=== PATIENT | male | born 1995 | race Caucasian/White ===

== ENCOUNTER 2021-08-01 06:50 | Emergency (ER) | payer MEDICAID, MEDICARE ==
[~2021-08-01] VITALS: Ht 182.9 cm; Wt 109.5 kg
[2021-08-01 06:55] VITALS: BP 105/75
--- NOTE | 2021-08-01 07:01 | NUR ---
PT TAKEN TO BED 04.
--- NOTE | 2021-08-01 07:14 | NUR ---
DR. CAMPO AT PT BEDSIDE FOR FURTHER EVALUATION.
--- NOTE | 2021-08-01 07:18 | NUR ---
RECEIVED REPORT FROM STEFFI EL. TRANSFER OF CARE AT THIS TIME.
[2021-08-01] MEDS ORDERED: KETOROLAC 30 MG/ML VIAL IM ONE (07:20)
--- NOTE | 2021-08-01 07:30 | NUR ---
COLLECTED STEP THROAT RAPID AND CULTURE WALKED TO LAB.
--- NOTE | 2021-08-01 07:32 | NUR ---
25 Y/O MALE C/O SORE THROAT 12/01 DESCRIBES SORE X1 WEEK. PT STATES IT IS DIFFICULT TO SWALLOW. DENIES FEVER, COUGH AND CONGESTION. DENIES PMH NKA
--- NOTE | 2021-08-01 07:33 | NUR ---
PT TAKEN TO CT VIA W/C AT THIS TIME.
--- NOTE | 2021-08-01 07:39 | NUR ---
PT TAKEN TO ER BED 4 VIA W/C FROM CT.
--- NOTE | 2021-08-01 08:48 | NUR ---
DR. CAMPO AT PT BEDSIDE FOR FURTHER RE-EVALUATION.
[2021-08-01] MEDS ORDERED: PENI500T20 PO (08:51)
[2021-08-01] MEDS ORDERED: IBUP-2213 PO (08:51)
[2021-08-01 09:18] VITALS: BP 105/75
--- NOTE | 2021-08-01 09:19 | NUR ---
Patient discharged with v/s stable. Written and verbal after care instructions given FOR DIET AND DENTAL DISEASE, LYMPHDENOPATHY and explained. Patient alert, oriented and verbalized understanding of instructions. Ambulatory with steady gait. All questions addressed prior to discharge. ID band removed. Patient advised to follow up with PMD. Rx of PENICILLIN AND IBUPROFEN given. Patient educated on indication of medication including possible reaction and side effects. Opportunity to ask questions provided and answered.
== END 2021-08-01 09:18 | disposition home or self-care (01) ==
LOC: MED 06:50
DX: R22.0 Localized swelling, mass and lump, head (principal); J45.909 Unspecified asthma, uncomplicated; F17.200 Nicotine dependence, unspecified, uncomplicated; Z79.899 Other long term (current) drug therapy
CPT/HCPCS: 70486; 87081; 96372; 99284; J1885

== ENCOUNTER 2022-01-19 15:44 | Emergency (ER) | payer MEDICAID ==
[~2022-01-19] VITALS: Ht 182.9 cm; Wt 104.3 kg
[~2022-01-19 15:44] MED LIST: IBUP-2213 PO; PENI500T20 PO
[2022-01-19 15:56] VITALS: BP 146/73
--- NOTE | 2022-01-19 16:10 | NUR ---
C/O DIFFICULTY BREATHING AT NIGHT X 3 DAYS AND C/O COUGH, RUNNY NOSE, CONGESTION, EDGAR X 3 WEEKS. PT TOOK DAYQUIL 4 HOUR AGO. PMH: DENIES
--- NOTE | 2022-01-19 16:37 | NUR ---
Patient being evaluated by DR RAND at bedside.
[2022-01-19] MEDS ORDERED: ALBU0.0912 IH (16:44)
[2022-01-19] MEDS ORDERED: ROB PO (16:44)
[2022-01-19] MEDS ORDERED: SUD30 PO (16:44)
[2022-01-19] MEDS ORDERED: PROM118S5 PO (16:44)
[2022-01-19] MEDS ORDERED: PRED20TA5 PO (17:05)
[2022-01-19 17:20] VITALS: BP 130/64
--- NOTE | 2022-01-19 17:20 | NUR ---
Patient discharged with v/s stable. Written and verbal after care instructions given and explained. Patient alert, oriented and verbalized understanding of instructions. Ambulatory with steady gait. All questions addressed prior to discharge. ID band removed. Patient advised to follow up with PMD. Rx of ALBUTEROL, PREDNISONE, PROMETHAZINE, ROBITUSSIN & SUDAFED given. Patient educated on indication of medication including possible reaction and side effects. Opportunity to ask questions provided and answered.
== END 2022-01-19 17:20 | disposition home or self-care (01) ==
LOC: MED 15:44
DX: J40 Bronchitis, not specified as acute or chronic (principal); Z20.822 Contact with and (suspected) exposure to COVID-19
CPT/HCPCS: 71046; 99284

== ENCOUNTER 2023-03-26 14:43 | Emergency (ER) | payer MEDICAID ==
[~2023-03-26] VITALS: Ht 182.9 cm; Wt 113.4 kg
[~2023-03-26 14:43] MED LIST changes: +ALBU0.0912 IH; +PRED20TA5 PO; +PROM118S5 PO; +ROB PO; +SUD30 PO
[2023-03-26 14:58] VITALS: BP 120/80; PULSE 93; RESP 18; TEMP 98; O2SAT 98
[2023-03-26] MEDS ORDERED: AZIT250T4 PO (15:28)
[2023-03-26 16:29] LABS: FLU A ANTIGEN negative (NEGATIVE); FLU B ANTIGEN NEGATIVE (NEGATIVE)
[2023-03-26 16:50] VITALS: BP 120/80; PULSE 93; RESP 18; TEMP 98; O2SAT 98
== END 2023-03-26 16:50 | disposition home or self-care (01) ==
LOC: MED 14:43
DX: B34.9 Viral infection, unspecified (principal); Z20.822 Contact with and (suspected) exposure to COVID-19; J45.909 Unspecified asthma, uncomplicated; Z79.899 Other long term (current) drug therapy; Z79.1 Long term (current) use of non-steroidal anti-inflammatories (NSAID); Z79.2 Long term (current) use of antibiotics
CPT/HCPCS: 99283

== ENCOUNTER 2023-04-29 02:35 | Emergency (ER) | payer MEDICAID ==
[~2023-04-29] VITALS: Ht 182.9 cm; Wt 115.7 kg
[~2023-04-29 02:35] MED LIST changes: +AZIT250T4 PO
[2023-04-29 02:42] VITALS: BP 108/72; PULSE 70; RESP 18; TEMP 97.3; O2SAT 99
[2023-04-29 02:45] VITALS: BP 108/72; PULSE 70; RESP 18; TEMP 97.3
[2023-04-29 03:00] VITALS: O2SAT 99
[2023-04-29 03:44] LABS: FLU A ANTIGEN negative (NEGATIVE); FLU B ANTIGEN NEGATIVE (NEGATIVE)
[2023-04-29] MEDS ORDERED: NAPR-54 PO (05:43)
[2023-04-29] MEDS ORDERED: ALBU0.0912 IH (05:43)
[2023-04-29] MEDS ORDERED: AZIT250T4 PO (05:43)
== END 2023-04-29 05:50 | disposition home or self-care (01) ==
LOC: MED 02:35
DX: J06.9 Acute upper respiratory infection, unspecified (principal); Z20.822 Contact with and (suspected) exposure to COVID-19; J45.901 Unspecified asthma with (acute) exacerbation; Z79.899 Other long term (current) drug therapy
CPT/HCPCS: 71045; 87426; 87804; 93005; 99285; Q0092

== ENCOUNTER 2024-01-18 21:52 | Emergency (ER) | payer MEDICAID ==
[~2024-01-18] VITALS: Ht 182.9 cm; Wt 121.3 kg
[~2024-01-18 21:52] MED LIST changes: +NAPR-337 PO
[2024-01-18 22:22] VITALS: BP 105/41; PULSE 69; RESP 20; TEMP 98.2; O2SAT 99
[2024-01-18] MEDS: ACETAMINOPHEN EXTRA STRENGTH 500 MG TAB PO ONE (23:03)
[2024-01-18] MEDS: IBUPROFEN 600 MG TAB PO ONE (23:05)
[2024-01-18 23:13] VITALS: BP 105/41; PULSE 69; RESP 20; TEMP 98.2; O2SAT 99
== END 2024-01-18 22:21 | disposition home or self-care (01) ==
LOC: MED 21:52
DX: R51.9 Headache, unspecified (principal); J45.909 Unspecified asthma, uncomplicated; Z79.899 Other long term (current) drug therapy
CPT/HCPCS: 99283